=== PATIENT | male | born 1970 | race Caucasian/White ===

== ENCOUNTER 2022-09-03 13:18 | Emergency (ER) | payer BC ==
--- NOTE | 2022-09-03 13:27 | ED ---
General Adult HPI <Dulce Maria Smith - Last Filed: 09/03/22 13:19> - General Source: patient, RN notes reviewed <Yenny Dunbar - Last Filed: 09/03/22 18:34> - General Stated complaint: coughing up blood, SOB, chest pain - History of Present Illness Initial comments: Patient is a 52-year-old male presenting to the emergency room with his spouse from home with complaints of chest pain ongoing for approximately 7 days without improvement in symptoms along with hemoptysis, headache, dizziness and shortness of breath. He states that his symptoms began just after returning from being out of town. He reports that his chest pain is pressure-like in nature midsternal region with out any aggravating or alleviating factors. He is chest pain is not reproducible. He assumed that his symptoms were related to flu like condition but he did go to a video visit and was prescribed Zithromax along with steroids without any improvement in symptoms. He has not been tested for any viral illnesses. He reports that he was also hypertensive at the dentist office prior to these events happening but has not followed up with his primary care provider regarding the hypertension does not take hypertensive medications on a regular basis. He denies any family history of CAD. He is not a smoker. (Dulce Maria Smith) I reviewed the above note. (Yenny Dunbar) - Related Data Previous Rx's Medication Instructions Recorded Albuterol Nebulized [Ventolin 2.5 mg INHALATION Q6H PRN #30 ml 09/03/22 Nebulized] predniSONE 50 mg PO DAILY #5 tab 09/03/22 Allergies Allergy/AdvReac Type Severity Reaction Status Date / Time azithromycin Allergy Rash/Hives Verified 09/03/22 13:46 Review of Systems ROS Other: All systems not noted in ROS Statement are negative. <Dulce Maria Smith - Last Filed: 09/03/22 13:19> ROS Other: All systems not noted in ROS Statement are negative. <Yenny Dunbar - Last Filed: 09/03/22 18:34> ROS Statement: Those systems with pertinent positive or pertinent negative responses have been documented in the HPI. General Exam General appearance: alert, in no apparent distress Head exam: Present: atraumatic, normocephalic, normal inspection Eye exam: Present: normal appearance, PERRL, EOMI. Absent: scleral icterus, conjunctival injection, periorbital swelling ENT exam: Present: normal exam, mucous membranes moist Neck exam: Present: normal inspection. Absent: tenderness, meningismus, lymphadenopathy Respiratory exam: Present: normal lung sounds bilaterally. Absent: respiratory distress, wheezes, rales, rhonchi, stridor Cardiovascular Exam: Present: regular rate, normal rhythm, normal heart sounds. Absent: systolic murmur, diastolic murmur, rubs, gallop, clicks GI/Abdominal exam: Present: soft, normal bowel sounds. Absent: distended, tenderness, guarding, rebound, rigid Extremities exam: Present: normal inspection, full ROM, normal capillary refill. Absent: tenderness, pedal edema, joint swelling, calf tenderness Back exam: Present: normal inspection Neurological exam: Present: alert, oriented X3, CN II-XII intact Psychiatric exam: Present: normal affect, normal mood Skin exam: Present: warm, dry, intact, normal color. Absent: rash <Yenny Dunbar - Last Filed: 09/03/22 18:34> Course Vital Signs 09/03/22 09/03/22 13:34 16:58 Temperature 97.5 F L Pulse Rate 121 H 96 Respiratory 18 18 Rate Blood Pressure 158/95 148/114 O2 Sat by Pulse 95 97 Oximetry EKG Findings - EKG Comments: EKG Findings:: I interpreted the following: rate 99bpm. NJ 141, QRS 86, QT/Qtc 339/395 <Yenny Dunbar - Last Filed: 09/03/22 18:34> Medical Decision Making - Lab Data Result diagrams: 09/03/22 14:30 09/03/22 14:30 <Yenny Dunbar - Last Filed: 09/03/22 18:34> - Medical Decision Making Was pt. sent in by a medical professional or institution? @ -Self Did you speak to anyone other than the patient for history? @ -Patient Did you review nursing and triage notes? @ -I reviewed the nursing and triage notes Were old charts reviewed? @ -None Differential Diagnosis? @ -[chest pain, pulmonary embolism, upper viral infection EKG interpreted by me (3pts min.)? @ -See above X-rays interpreted by me (1pt min.)? @ -No evidence of pleural effusion, consolidation CT interpreted by me (1pt min.)? @ -[none] U/S interpreted by me (1pt. min.)? @ -[none] What testing was considered but not performed? (CT, X-rays, U/S, labs)? Why? @ [CT, X-rays, U/S, labs? Why?] What meds were considered but not given? Why? @ -patient was iven a prescription for prednisone and albuterol treatments Did you discuss the management of the patient with other professionals? @ -I discussed the case with Dr. Paredes who agrees with plan for discharge. Did you reconcile home meds? @ -[none] Was smoking cessation discussed for >3mins.? @ -none Was critical care preformed (if so, how long)? @ -[none] Were there social determinants of health that impacted care today? How? (Ho melessness, low income, unemployed, alcoholism, drug addiction, transportation, low edu. Level, literacy, decrease access to med. care, detention, rehab)? @ -[Homelessness, low income, unemployed, alcoholism, drug addiction, transportation, low edu. Level, literacy, decrease access to med. care, detention, rehab?] Was there de-escalation of care discussed even if they declined? (Discuss DNR or withdrawal of care, Hospice)? @ -[Discuss DNR or withdrawal of care, Hospice?] What co-morbidities impacted this encounter? (DM, HTN, Smoking, COPD, CAD, Cancer, CVA, Hep., AIDS, mental health diagnosis, sleep apnea, morbid obesity)? @ -[DM, HTN, Smoking, COPD, CAD, Cancer, CVA, Hep., AIDS, mental health diagnosis, sleep apnea, morbid obesity?] Was patient admitted / discharged? @ Patient was discharged in stable condition recommended close follow-up with primary care in 1-2 days. He was given a prescription for prednisone and albuterol treatments and was instructed to return to the emergency department if worsening symptoms of cough, shortness of breath, fever. Undiagnosed new problem with uncertain prognosis? @ no Drug Therapy requiring intensive monitoring for toxicity (Heparin, Nitro, Insulin, Cardizem)? @ -[none] Were any procedures done? @ -[none] Diagnosis/symptom? @ -Influenza A Acute, or Chronic, or Acute on Chronic? @ Acute ] Uncomplicated (without systemic symptoms) or Complicated (systemic symptoms)? @ uncomplicaed ] Side effects of treatment? @ -[none] Exacerbation, Progression, or Severe Exacerbation] @ -[no] Poses a threat to life or bodily function? @ Low likelihoo] (Yenny Dunbar) - Lab Data Lab Results 09/03/22 09/03/22 09/03/22 Range/Units 13:40 14:30 14:30 WBC 10.6 (3.8-10.6) k/uL RBC 5.24 (4.30-5.90) m/uL Hgb 15.3 (13.0-17.5) gm/dL Hct 43.8 (39.0-53.0) % MCV 83.6 (80.0-100.0) fL MCH 29.3 (25.0-35.0) pg MCHC 35.0 (31.0-37.0) g/dL RDW 12.8 (11.5-15.5) % Plt Count 352 (150-450) k/uL MPV 7.2 Neutrophils % 83 % Lymphocytes % 11 % Monocytes % 5 % Eosinophils % 0 % Basophils % 0 % Neutrophils # 8.7 H (1.3-7.7) k/uL Lymphocytes # 1.2 (1.0-4.8) k/uL Monocytes # 0.5 (0-1.0) k/uL Eosinophils # 0.0 (0-0.7) k/uL Basophils # 0.0 (0-0.2) k/uL PT (9.0-12.0) sec INR (<1.2) APTT (22.0-30.0) sec D-Dimer (<0.60) mg/L FEU Sodium 135 L (137-145) mmol/L Potassium 4.0 (3.5-5.1) mmol/L Chloride 100 (98-107) mmol/L Carbon Dioxide 22 (22-30) mmol/L Anion Gap 13 mmol/L BUN 12 (9-20) mg/dL Creatinine 0.77 (0.66-1.25) mg/dL Est GFR (CKD-EPI)AfAm >90 (>60 ml/min/1.73 sqM) Est GFR (CKD-EPI)NonAf >90 (>60 ml/min/1.73 sqM) Glucose 132 H (74-99) mg/dL Calcium 9.3 (8.4-10.2) mg/dL Magnesium 2.2 (1.6-2.3) mg/dL Total Bilirubin 1.0 (0.2-1.3) mg/dL AST 34 (17-59) U/L ALT 35 (4-49) U/L Alkaline Phosphatase 82 (38-126) U/L Troponin I (0.000-0.034) ng/mL Total Protein 7.7 (6.3-8.2) g/dL Albumin 4.6 (3.5-5.0) g/dL Influenza Type A (PCR) Detected A (Not Detectd) Influenza Type B (PCR) Not Detected (Not Detectd) RSV (PCR) Not Detected (Not Detectd) SARS-CoV-2 (PCR) Not Detected (Not Detectd) 09/03/22 09/03/22 Range/Units 14:30 15:55 WBC (3.8-10.6) k/uL RBC (4.30-5.90) m/uL Hgb (13.0-17.5) gm/dL Hct (39.0-53.0) % MCV (80.0-100.0) fL MCH (25.0-35.0) pg MCHC (31.0-37.0) g/dL RDW (11.5-15.5) % Plt Count (150-450) k/uL MPV Neutrophils % % Lymphocytes % % Monocytes % % Eosinophils % % Basophils % % Neutrophils # (1.3-7.7) k/uL Lymphocytes # (1.0-4.8) k/uL Monocytes # (0-1.0) k/uL Eosinophils # (0-0.7) k/uL Basophils # (0-0.2) k/uL PT 10.0 (9.0-12.0) sec INR 0.9 (<1.2) APTT 23.7 (22.0-30.0) sec D-Dimer 0.41 (<0.60) mg/L FEU Sodium (137-145) mmol/L Potassium (3.5-5.1) mmol/L Chloride (98-107) mmol/L Carbon Dioxide (22-30) mmol/L Anion Gap mmol/L BUN (9-20) mg/dL Creatinine (0.66-1.25) mg/dL Est GFR (CKD-EPI)AfAm (>60 ml/min/1.73 sqM) Est GFR (CKD-EPI)NonAf (>60 ml/min/1.73 sqM) Glucose (74-99) mg/dL Calcium (8.4-10.2) mg/dL Magnesium (1.6-2.3) mg/dL Total Bilirubin (0.2-1.3) mg/dL AST (17-59) U/L ALT (4-49) U/L Alkaline Phosphatase (38-126) U/L Troponin I <0.012 (0.000-0.034) ng/mL Total Protein (6.3-8.2) g/dL Albumin (3.5-5.0) g/dL Influenza Type A (PCR) (Not Detectd) Influenza Type B (PCR) (Not Detectd) RSV (PCR) (Not Detectd) SARS-CoV-2 (PCR) (Not Detectd) Disposition <Dulce Maria Smith - Last Filed: 09/03/22 13:19> Is patient prescribed a controlled substance at d/c from ED?: No Time of Disposition: 17:14 <Yenny Dunbar - Last Filed: 09/03/22 18:34> Clinical Impression: Influenza A Disposition: HOME SELF-CARE Condition: Stable Instructions (If sedation given, give patient instructions): Upper Respiratory Infection (ED) Prescriptions: predniSONE 50 mg PO DAILY #5 tab Albuterol Nebulized [Ventolin Nebulized] 2.5 mg INHALATION Q6H PRN #30 ml PRN Reason: difficulty in breathing Referrals: Rudy Chiu MD [Primary Care Provider] - 1-2 days
[2022-09-03 13:39] VITALS: RESP 18; TEMP 97.5
--- NOTE | 2022-09-03 14:10 | XR ---
EXAMINATION TYPE: XR chest 2V DATE OF EXAM: 09/03/2022 COMPARISON: None INDICATION: Chest pain and hemoptysis congestion dizziness TECHNIQUE: Frontal and lateral views of the chest are obtained. FINDINGS: The heart size is normal. The pulmonary vasculature is normal. The lungs are clear. IMPRESSION: 1. No acute pulmonary process.
[2022-09-03 14:39] LABS: Basophils % (A) 0 %; Eosinophils % (A) 0 %; HCT 43.8 % (39.0-53.0); HGB 15.3 gm/dL (13.0-17.5); Lymphocytes # (A) 1.2 k/uL (1.0-4.8); Lymphocytes % (A) 11 %; MCH 29.3 pg (25.0-35.0); MCV 83.6 fL (80.0-100.0); Mean Platelet Volume 7.2; Monocytes # (A) 0.5 k/uL (0-1.0); Monocytes % (A) 5 %; Neutrophils # (A) 8.7 k/uL (1.3-7.7); Neutrophils % (A) 83 %; Platelet Count 352 k/uL (150-450); RBC 5.24 m/uL (4.30-5.90); RDW 12.8 % (11.5-15.5); WBC 10.6 k/uL (3.8-10.6)
[2022-09-03 14:48] LABS: ALT 35 U/L (4-49); AST 34 U/L (17-59); African American GFR (CKD) >90 (>60 ml/min/1.73 sqM); Albumin 4.6 g/dL (3.5-5.0); Alkaline Phosphatase 82 U/L (38-126); Anion Gap 13 mmol/L; Blood Urea Nitrogen 12 mg/dL (9-20); Calcium 9.3 mg/dL (8.4-10.2); Carbon Dioxide 22 mmol/L (22-30); Chloride 100 mmol/L (98-107); Glucose 132 mg/dL (74-99); Magnesium 2.2 mg/dL (1.6-2.3); Non-African American GFR(CKD) >90 (>60 ml/min/1.73 sqM); Sodium 135 mmol/L (137-145); Total Protein 7.7 g/dL (6.3-8.2)
[2022-09-03 16:19] LABS: INR 0.9 (<1.2); Partial Thromboplastin Time 23.7 sec (22.0-30.0)
[2022-09-03 17:02] VITALS: BP 148/114; PULSE 96
== END 2022-09-03 17:20 | disposition home or self-care (01) ==
LOC: EC 13:18
DX: J10.1 Influenza due to other identified influenza virus with other respiratory manifestations (principal); Z88.0 Allergy status to penicillin; Z20.822 Contact with and (suspected) exposure to COVID-19
CPT/HCPCS: 36415; 71046; 80053; 83735; 84484; 85025; 85379; 85610; 85730; 87636; 93005; 99285